=== PATIENT | female | born 1970 | race American Indian/Alaskan Native ===

== ENCOUNTER 2018-11-15 11:22 | Emergency (ER) | payer OTHER ==
[2018-11-15 11:28] VITALS: BP 147/102
[2018-11-15 11:45] LABS: Basophils # (Auto) 0.1 K/mm3 (0.0-0.1); Basophils % (Auto) 0.7 % (0.0-1.8); Eosinophils # (Auto) 0.6 K/mm3 (0.0-0.4); Eosinophils % (Auto) 4.5 % (0.0-4.3); Hematocrit 37.4 % (30.3-42.9); Hemoglobin 12.4 gm/dl (10.1-14.3); Lymphocytes # (Auto) 4.5 K/mm3 (1.2-5.4); Lymphocytes % (Auto) 34.7 % (13.4-35.0); Mean Corpuscular HGB Conc 33 % (30-34); Mean Corpuscular Volume 88 fl (79-97); Monocytes # (Auto) 0.9 K/mm3 (0.0-0.8); Monocytes % (Auto) 6.6 % (0.0-7.3); Platelet Count 265 K/mm3 (140-440); Red Blood Count 4.22 M/mm3 (3.65-5.03)
[2018-11-15 11:46] LABS: Bilirubin,Urine NEG (Negative); Blood,Urine NEG (Negative); Color,Urine Yellow (Yellow); Mucus,Urine FEW /HPF; Urobilinogen,Urine < 2.0 mg/dL (<2.0); WBC,Urine < 1.0 /HPF (0.0-6.0)
[2018-11-15 12:08] LABS: Albumin 3.4 g/dL (3.9-5); Calcium 8.9 mg/dL (8.4-10.2)
[2018-11-15] MEDS ORDERED: ZOFRAN IM ONE (12:14)
[2018-11-15] MEDS ORDERED: MORPHINE IM ONE (12:14)
--- NOTE | 2018-11-15 12:14 | Emergency Department Report ---
ED Abdominal Pain HPI - General Chief Complaint: Abdominal Pain Stated Complaint: STOMACH PAIN Time Seen by Provider: 11/15/18 11:59 Source: patient Mode of arrival: Ambulatory Limitations: No Limitations - History of Present Illness Initial Comments: Patient is 48 years old female with history of hypertension, congestive heart failure and a recent diagnosis of kidney problem but the patient does not know what set him off our disease. Patient followed by [facility] and he stated that she recently moved to this area. Patient presented to the ER complaining of diffuse abdominal pain, crampy in nature with no radiation. Patient stated that he started 3 days ago. Patient denied any nausea or vomiting. No diarrhea. Patient stated that she suffer constipation sometimes. Patient denied any fever or chills. MD Complaint: abdominal pain -: days(s) (3) Location: diffuse Radiation: none Migration to: no migration Severity: moderate Severity scale (0 -10): 10 Quality: sharp Worsens With: nothing - Related Data Allergies Allergy/AdvReac Type Severity Reaction Status Date / Time iodine Allergy Hives Verified 11/15/18 11:24 latex Allergy Hives Verified 11/15/18 11:24 Penicillins Allergy Hives Verified 11/15/18 11:24 ED Review of Systems ROS: Stated complaint: STOMACH PAIN Other details as noted in HPI Comment: All other systems reviewed and negative Constitutional: denies: chills, fever Respiratory: denies: cough, orthopnea, shortness of breath, SOB with exertion, SOB at rest, wheezing Cardiovascular: denies: chest pain Gastrointestinal: abdominal pain, constipation. denies: nausea, vomiting, diarrhea, hematemesis, melena, hematochezia Musculoskeletal: denies: back pain Neurological: denies: headache, weakness, numbness, paresthesias, confusion, abnormal gait ED Past Medical Hx - Past Medical History Hx Hypertension: Yes Hx Renal Disease: Yes Hx Psychiatric Treatment: Yes (bipolar) Additional medical history: anemia, low iron - Surgical History Additional Surgical History: kidney biopsy - Social History Smoking Status: Current Every Day Smoker Substance Use Type: Marijuana ED Physical Exam - General Limitations: No Limitations General appearance: alert, in no apparent distress - Head Head exam: Present: atraumatic, normocephalic, normal inspection - Eye Eye exam: Present: normal appearance, PERRL - ENT ENT exam: Present: normal exam, normal orophraynx, mucous membranes moist - Neck Neck exam: Present: normal inspection, full ROM. Absent: tenderness, meningismus, lymphadenopathy, thyromegaly - Respiratory Respiratory exam: Present: normal lung sounds bilaterally - Cardiovascular Cardiovascular Exam: Present: regular rate, normal rhythm, normal heart sounds - GI/Abdominal GI/Abdominal exam: Present: soft, normal bowel sounds. Absent: distended, tenderness, guarding, rebound, rigid, organomegaly, mass, bruit, pulsatile mass, hernia - Extremities Exam Extremities exam: Present: normal inspection, full ROM, normal capillary refill. Absent: tenderness, pedal edema, joint swelling, calf tenderness - Back Exam Back exam: Present: normal inspection, full ROM. Absent: tenderness, CVA tenderness (R), CVA tenderness (L), muscle spasm, paraspinal tenderness, vertebral tenderness - Neurological Exam Neurological exam: Present: alert, oriented X3, CN II-XII intact, normal gait, reflexes normal - Skin Skin exam: Present: warm, intact, normal color ED Course Vital Signs 11/15/18 11:26 Temperature 98.2 F Pulse Rate 99 H Respiratory 18 Rate Blood Pressure 147/102 O2 Sat by Pulse 99 Oximetry ED Medical Decision Making - Lab Data Result diagrams: 11/15/18 11:33 11/15/18 11:33 - Radiology Data Radiology results: report reviewed Referring Physician: SENG CHAPA Patient Name: JAGUAR NAGEL Date of : 1970 Sex: Female Report Date: 2018-11-15 Report Status: [place] [address] Cat Scan Report Signed Patient: JAGUAR NAGEL MR#: [id number] : 1970 Acct:[id number] Age/Sex: 48 / F ADM Date: 11/15/18 Loc: ED Attending Dr: Ordering Physician: SENG CHAPA Date of Service: 11/15/18 Procedure(s): CT abdomen pelvis wo con Accession Number(s): [id number] cc: SENG CHAPA PROCEDURE: CT ABDOMEN PELVIS WO CON TECHNIQUE: CT examination of the abdomen without IV contrast CT examination of the pelvis without IV contrast HISTORY: ABDOMINAL PAIN COMPARISONS: None FINDINGS: No acute lung base finding. No acute fracture. Nonspecific slight thickening of the anterior pericardium may be scar or small effusion. Smoothly marginated hypodense right and left hepatic lobe lesions are nonspecific and statistically most likely reflect cysts and/or hemangiomas. They are too small to characterize. Liver slightly enlarged with 19.1 cm sagittal dimension. Normal noncontrast appearance of the gallbladder, adrenals, pancreas, and spleen. Normal caliber abdominal aorta with slight calcified atherosclerotic plaque. Normal caliber IVC. Lack of IV and oral contrast limits the examination. No renal calculus or hydronephrosis. Normal-appearing proximal ureters. Distal ureters are obscured by adjacent pelvic structures. Intact anterior abdominal wall without hernia. No retroperitoneal adenopathy. No evidence of mesenteric mass. Normal-appearing stomach and duodenum. No small bowel distention in the abdomen and pelvis. Nonspecific slight pelvic cul-de-sac free fluid may be reactive. Normal-appearing urinary bladder, uterus, and adnexa. No definite rectal abnormality. Nonspecific scattered mural thickening is noted from the mid transverse colon to the distal sigmoid colon. No associated diverticulosis. No definite adjacent mesenteric fat stranding. No gross ascites, free air, or colonic distention. Normal-appearing cecum, terminal ileum, and appendix. IMPRESSION: Nonspecific scattered mural thickening is noted from the mid transverse colon to the distal sigmoid colon. No associated diverticulosis. Findings may reflect edema, inflammation, or nonspecific colitis. Differential includes inflammatory bowel disease Nonspecific slight thickening of the anterior pericardium may be scar or small effusion Slight hepatomegaly with small lesion statistically most likely representing cysts and/or hemangiomas Slight pelvic cul-de-sac free fluid may be reactive This document is electronically signed by Yaron Alberts MD., November 15 2018 01:28:31 PM ET Transcribed By: VINICIO Dictated By: YARON ALBERTS MD Electronically Authenticated By: YARON ALBERTS MD Signed Date/Time: 11/15/18 1330 DD/ 124 TD/TT: 11/15/18 1240 - Medical Decision Making Patient is 48 years old female with history of hypertension, congestive heart failure and a recent diagnosis of kidney problem but the patient does not know what set him off our disease. Patient followed by [facility] and he stated that she recently moved to this area. Patient presented to the ER complaining of diffuse abdominal pain, crampy in nature with no radiation. Patient stated that he started 3 days ago. Patient denied any nausea or vomiting. No diarrhea. Patient stated that she suffer constipation sometimes. Patient denied any fever or chills. The patient stated that she is feeling much better. CT abdomen and pelvis show ed possible colitis. Patient will be started on Flagyl and ciprofloxacin for 7 days and advised to follow-up with her primary care physician in the next 2-3 days and to return to the ER if symptoms are not improved. Critical care attestation.: If time is entered above; I have spent that time in minutes in the direct care of this critically ill patient, excluding procedure time. ED Disposition Clinical Impression: Abdominal pain, Colitis Disposition: TO HOME OR SELFCARE Is pt being admited?: No Condition: Stable Instructions: Abdominal Pain (ED), Infectious Colitis (ED) Referrals: [facility] [Provider Group] - 3-5 Days
--- NOTE | 2018-11-15 13:30 | Cat Scan Report ---
PROCEDURE: CT ABDOMEN PELVIS WO CON TECHNIQUE: CT examination of the abdomen without IV contrast CT examination of the pelvis without IV contrast HISTORY: ABDOMINAL PAIN COMPARISONS: None FINDINGS: No acute lung base finding. No acute fracture. Nonspecific slight thickening of the anterior pericardium may be scar or small effusion. Smoothly marginated hypodense right and left hepatic lobe lesions are nonspecific and statistically m ost likely reflect cysts and/or hemangiomas. They are too small to characterize. Liver slightly enlar ged with 19.1 cm sagittal dimension. Normal noncontrast appearance of the gallbladder, adrenals, pancreas, and spleen. Normal caliber abdo helder aorta with slight calcified atherosclerotic plaque. Normal caliber IVC. Lack of IV and oral con trast limits the examination. No renal calculus or hydronephrosis. Normal-appearing proximal ureters. Distal ureters are obscured b y adjacent pelvic structures. Intact anterior abdominal wall without hernia. No retroperitoneal adenopathy. No evidence of mesenter ic mass. Normal-appearing stomach and duodenum. No small bowel distention in the abdomen and pelvis. Nonspecific slight pelvic cul-de-sac free fluid may be reactive. Normal-appearing urinary bladder, uterus, and adnexa. No definite rectal abnormality. Nonspecific scattered mural thickening is noted from the mid transverse colon to the distal sigmoid c olon. No associated diverticulosis. No definite adjacent mesenteric fat stranding. No gross ascites, free air, or colonic distention. Normal-appearing cecum, terminal ileum, and append ix. IMPRESSION: Nonspecific scattered mural thickening is noted from the mid transverse colon to the distal sigmoid c olon. No associated diverticulosis. Findings may reflect edema, inflammation, or nonspecific colitis. Differential includes inflammatory bowel disease Nonspecific slight thickening of the anterior pericardium may be scar or small effusion Slight hepatomegaly with small lesion statistically most likely representing cysts and/or hemangiomas Slight pelvic cul-de-sac free fluid may be reactive This document is electronically signed by Yaron Cazares MD., November 15 2018 01:28:31 PM ET
== END 2018-11-15 15:33 | disposition home or self-care (01) ==
LOC: ED 11:22
DX: K52.9 Noninfective gastroenteritis and colitis, unspecified (principal); I10 Essential (primary) hypertension; F31.9 Bipolar disorder, unspecified; F17.200 Nicotine dependence, unspecified, uncomplicated; F12.10 Cannabis abuse, uncomplicated; Z88.0 Allergy status to penicillin; Z86.2 Personal history of diseases of the blood and blood-forming organs and certain disorders involving the immune mechanism; Z91.040 Latex allergy status; Z91.09 Other allergy status, other than to drugs and biological substances
CPT/HCPCS: 36415; 74176; 80053; 81001; 83690; 84703; 85025; 96372; 99284; J2270; J2405

== ENCOUNTER 2018-11-18 15:17 | Emergency (ER) | payer OTHER ==
[2018-11-18 16:14] VITALS: BP 149/95
[2018-11-18 16:49] LABS: Basophils # (Auto) 0.1 K/mm3 (0.0-0.1); Basophils % (Auto) 0.8 % (0.0-1.8); Eosinophils # (Auto) 0.3 K/mm3 (0.0-0.4); Eosinophils % (Auto) 3.7 % (0.0-4.3); Hematocrit 36.7 % (30.3-42.9); Hemoglobin 12.1 gm/dl (10.1-14.3); Lymphocytes # (Auto) 2.3 K/mm3 (1.2-5.4); Lymphocytes % (Auto) 26.2 % (13.4-35.0); Mean Corpuscular HGB Conc 33 % (30-34); Mean Corpuscular Volume 88 fl (79-97); Monocytes # (Auto) 0.6 K/mm3 (0.0-0.8); Monocytes % (Auto) 6.8 % (0.0-7.3); Platelet Count 265 K/mm3 (140-440); Red Blood Count 4.15 M/mm3 (3.65-5.03); Red Cell Distribution Width 15.7 % (13.2-15.2)
[2018-11-18 16:57] LABS: Bilirubin,Urine NEG (Negative); Blood,Urine NEG (Negative); Color,Urine Yellow (Yellow); Urobilinogen,Urine < 2.0 mg/dL (<2.0)
[2018-11-18 17:06] LABS: Albumin 3.4 g/dL (3.9-5); Calcium 8.9 mg/dL (8.4-10.2)
--- NOTE | 2018-11-18 17:20 | Emergency Department Report ---
ED Abdominal Pain HPI - General Chief Complaint: Abdominal Pain Stated Complaint: ABD PAIN Time Seen by Provider: 11/18/18 17:19 Source: patient Mode of arrival: Ambulatory Limitations: No Limitations - History of Present Illness Initial Comments: Patient is 48 years old female with history of hypertension, congestive heart failure and a recent diagnosis of kidney problem but the patient does not know what set her off on her disease. Patient followed by [facility] and he stated that she recently moved to this area. Patient presented to the ER complaining of diffuse abdominal pain, crampy in nature with no radiation. Patient was recently seen here on 11/15/2018 for the same complaint. Patient was given a prescription for tramadol, Flagyl, Zofran and Cipro which patient has not fill fussing. Review of patient's chart from 11/15/2018 it showed the patient had a elevated BU Villatoro and creatinine. Today her creatinine has increased from 1.8- 1.9 and her BUN is from 30 to now 35. It was noted that her lipase was within normal limits at 25 now was up to 215. MD Complaint: abdominal pain -: week(s) (1) Location: diffuse Severity scale (0 -10): 9 Quality: stabbing, sharp Consistency: constant Improves With: nothing - Related Data Previous Rx's Medication Instructions Recorded Last Taken Type Ciprofloxacin HCl [Ciprofloxacin 500 mg PO Q12H #14 tab 11/15/18 Unknown Rx TAB] Ondansetron [Zofran Odt] 4 mg PO Q8HR PRN #14 tab.rapdis 11/15/18 Unknown Rx metroNIDAZOLE [Flagyl] 500 mg PO Q12HR #14 tab 11/15/18 Unknown Rx traMADol [Ultram 50 MG tab] 50 mg PO Q4HR PRN #14 tablet 11/15/18 Unknown Rx Allergies Allergy/AdvReac Type Severity Reaction Status Date / Time iodine Allergy Hives Verified 11/15/18 11:24 latex Allergy Hives Verified 11/15/18 11:24 Penicillins Allergy Hives Verified 11/15/18 11:24 ED Review of Systems ROS: Stated complaint: ABD PAIN Other details as noted in HPI ED Past Medical Hx - Past Medical History Previous Medical History?: Yes Hx Hypertension: Yes Hx Renal Disease: Yes Hx Psychiatric Treatment: Yes (bipolar) Additional medical history: anemia, low iron - Surgical History Additional Surgical History: kidney biopsy - Social History Smoking Status: Current Some Day Smoker Substance Use Type: Marijuana - Medications Home Medications: Home Medications Medication Instructions Recorded Confirmed Last Taken Type Ciprofloxacin HCl [Ciprofloxacin 500 mg PO Q12H #14 tab 11/15/18 Unknown Rx TAB] Ondansetron [Zofran Odt] 4 mg PO Q8HR PRN #14 tab.rapdis 11/15/18 Unknown Rx metroNIDAZOLE [Flagyl] 500 mg PO Q12HR #14 tab 11/15/18 Unknown Rx traMADol [Ultram 50 MG tab] 50 mg PO Q4HR PRN #14 tablet 11/15/18 Unknown Rx ED Physical Exam - General Limitations: No Limitations General appearance: alert, in no apparent distress - Head Head exam: Present: atraumatic, normocephalic - Eye Eye exam: Present: EOMI - ENT ENT exam: Present: mucous membranes moist - Neck Neck exam: Present: normal inspection - Respiratory Respiratory exam: Present: normal lung sounds bilaterally. Absent: respiratory distress - Cardiovascular Cardiovascular Exam: Present: regular rate, normal rhythm. Absent: systolic murmur, diastolic murmur, rubs, gallop - GI/Abdominal GI/Abdominal exam: Present: soft, tenderness, normal bowel sounds - Extremities Exam Extremities exam: Present: normal inspection - Back Exam Back exam: Present: normal inspection - Neurological Exam Neurological exam: Present: alert, oriented X3 - Psychiatric Psychiatric exam: Present: normal affect, normal mood - Skin Skin exam: Present: warm, dry, intact, normal color. Absent: rash ED Course Vital Signs 11/18/18 11/18/18 16:10 20:15 Temperature 98.0 F Pulse Rate 98 H 89 Respiratory 19 15 Rate Blood Pressure 149/95 [Left] O2 Sat by Pulse 98 99 Oximetry ED Medical Decision Making - Lab Data Result diagrams: 11/18/18 16:37 11/18/18 16:37 - Radiology Data Radiology results: report reviewed Patient: JAGUAR NAGEL MR#: [id number] : 1970 Acct:[id number] Age/Sex: 48 / F ADM Date: 11/18/18 Loc: ED Attending Dr: Ordering Physician: IDALMIS HUDSON Date of Service: 11/18/18 Procedure(s): CT abdomen pelvis wo con Accession Number(s): [id number] cc: IDALMIS HUDSON PROCEDURE: CT ABDOMEN PELVIS WO CON TECHNIQUE: Computerized axial tomography of the abdomen and pelvis was performed without intravenous contrast. This study is performed without intravascular contrast material and its sensitivity for abdominal and pelvic pathology, including neoplasms, inflammation, abscess, free fluid, thrombosis, arterial dissection and infarction, is reduced compared with a contrast enhanced study. CT DOSE LENGTH PRODUCT: 1113.4 mGycm HISTORY: Worsening of abd pain COMPARISONS: Prior CT scan abdomen and pelvis 11/15/2018 . FINDINGS: Lower Lung razo: No focal abnormalities seen. Upper Abdomen: The unenhanced images of the gallbladder, the adrenal glands, the pancreas and spleen are unremarkable. There appear to be several small low-density nodules scattered in the right lobe of the liver and to lesser extent left lobe of the liver measuring up to 1.1 cm greatest diameter. These may represent cysts although not confirmed on this exam. These were visualized on the prior study and are unchanged. The liver is otherwise unremarkable. Kidneys, Ureters and Urinary bladder: Nonobstructing 2 mm calculus visualized upper third right kidney. No other renal calculi are seen in the right or left. There is no hydronephrosis. No ureteral calculi are seen. Urinary bladder is unremarkable. Retroperitoneum: Atherosclerotic changes are seen in the abdominal aorta. No aneurysm is visualized. Nonspecific subcentimeter lymph nodes are seen in the retroperitoneum. No patho logically enlarged lymph nodes are identified. Bowel: No focal bowel abnormalities. Thickening seen in the transverse colon is not clearly identified today. No evidence of bowel obstruction ascites or free intraperitoneal gas. The appendix is not clearly visualized. No inflammatory changes are seen in the right lower quadrant. Reproductive organs: Uterus and adnexa show no focal abnormalities. Other: No acute bone abnormalities are visualized. IMPRESSION: No acute abnormalities identified. Multiple low-density nodules scattered in the liver as described. These are small and may represent represent cysts. Other nodules not entirely excluded. Ultrasound may be helpful to evaluate liver for further. Small nonobstructing calculus upper third right kidney. Kidneys are otherwise unremarkable. Abnormal wall thickening previously seen in the colon is not clearly identified today. If there is concern for bowel abnormality barium enema may be helpful. This document is electronically signed by Vik Batres MD., November 18 2018 07:53:19 PM ET Transcribed By: DFN Dictated By: VIK BATRES MD Electronically Authenticated By: VIK BATRES MD Signed Date/Time: 11/18/181954 DD/ 15 TD/TT: 11/18/181915 Critical care attestation.: If time is entered above; I have spent that time in minutes in the direct care of this critically ill patient, excluding procedure time. ED Disposition Clinical Impression: Abdominal pain Disposition: DC-01 TO HOME OR SELFCARE Is pt being admited?: No Does the pt Need Aspirin: No Condition: Stable Instructions: Abdominal Pain (ED) Additional Instructions: Please feel her prescriptions that was given to you on the . I have given you a good Rx cart will help with the olson of the medication. Follow-up with the primary care provider a urologist and a seam stay stitcher. Referrals: ANTONINA PEÑA MD [Primary Care Provider] - 3-5 Days [facility] [Provider Group] - 3-5 Days [facility] [Provider Group] - 3-5 Days Forms: Work/School Release Form(ED)
[2018-11-18] MEDS ORDERED: NACL 0.9% 1000 ML 1,000 ML IV ONE (18:10)
--- NOTE | 2018-11-18 19:55 | Cat Scan Report ---
PROCEDURE: CT ABDOMEN PELVIS WO CON TECHNIQUE: Computerized axial tomography of the abdomen and pelvis was performed without intravenous contrast. This study is performed without intravascular contrast material and its sensitivity for ab dominal and pelvic pathology, including neoplasms, inflammation, abscess, free fluid, thrombosis, art erial dissection and infarction, is reduced compared with a contrast enhanced study. CT DOSE LENGTH PRODUCT: 1113.4 mGycm HISTORY: Worsening of abd pain COMPARISONS: Prior CT scan abdomen and pelvis 11/15/2018 . FINDINGS: Lower Lung razo: No focal abnormalities seen. Upper Abdomen: The unenhanced images of the gallbladder, the adrenal glands, the pancreas and spleen are unremarkable. There appear to be several small low-density nodules scattered in the right lobe o f the liver and to lesser extent left lobe of the liver measuring up to 1.1 cm greatest diameter. The se may represent cysts although not confirmed on this exam. These were visualized on the prior study and are unchanged. The liver is otherwise unremarkable. Kidneys, Ureters and Urinary bladder: Nonobstructing 2 mm calculus visualized upper third right kidn ey. No other renal calculi are seen in the right or left. There is no hydronephrosis. No ureteral kylah culi are seen. Urinary bladder is unremarkable. Retroperitoneum: Atherosclerotic changes are seen in the abdominal aorta. No aneurysm is visualized. Nonspecific subcentimeter lymph nodes are seen in the retroperitoneum. No pathologically enlarged ly mph nodes are identified. Bowel: No focal bowel abnormalities. Thickening seen in the transverse colon is not clearly identifi ed today. No evidence of bowel obstruction ascites or free intraperitoneal gas. The appendix is not c learly visualized. No inflammatory changes are seen in the right lower quadrant. Reproductive organs: Uterus and adnexa show no focal abnormalities. Other: No acute bone abnormalities are visualized. IMPRESSION: No acute abnormalities identified. Multiple low-density nodules scattered in the liver as described. These are small and may represent r epresent cysts. Other nodules not entirely excluded. Ultrasound may be helpful to evaluate liver for further. Small nonobstructing calculus upper third right kidney. Kidneys are otherwise unremarkable. Abnormal wall thickening previously seen in the colon is not clearly identified today. If there is co ncern for bowel abnormality barium enema may be helpful. This document is electronically signed by Vik Fountain MD., November 18 2018 07:53:19 PM ET
--- NOTE | 2018-11-18 19:56 | XRay Report ---
PROCEDURE: XR CHEST ROUTINE 2V TECHNIQUE: PA and lateral view of the chest were obtained. HISTORY: abdominal pain shortness of breath COMPARISONS: FINDINGS: The lungs are clear. No infiltrates masses effusions or pneumothorax are visualized. No acute bone ab normalities are identified. Heart size and pulmonary vasculature appear normal. IMPRESSION: No evidence of acute cardiac or pulmonary process.. This document is electronically signed by Vik Fountain MD., November 18 2018 07:54:24 PM ET
== END 2018-11-18 20:15 | disposition home or self-care (01) ==
LOC: ED 15:17
DX: R10.9 Unspecified abdominal pain (principal); F17.200 Nicotine dependence, unspecified, uncomplicated; F12.10 Cannabis abuse, uncomplicated; I11.0 Hypertensive heart disease with heart failure; I50.9 Heart failure, unspecified; Z86.2 Personal history of diseases of the blood and blood-forming organs and certain disorders involving the immune mechanism; Z88.0 Allergy status to penicillin; Z91.040 Latex allergy status; Z91.041 Radiographic dye allergy status
CPT/HCPCS: 36415; 71046; 74176; 80053; 81001; 83690; 85025; 99285

== ENCOUNTER 2020-03-23 17:47 | Emergency (ER) | payer MEDICARE ==
--- NOTE | 2020-03-23 19:29 | Event Note ---
ED Screening Note Date of service: 03/23/20 Time: 19:27 ED Screening Note: 49-year-old female patient with right-sided lower abdominal pain worsening x2 days This initial assessment/diagnostic orders/clinical plan/treatment(s) is/are subject to change based on patients health status, clinical progression and re- assessment by fellow clinical providers in the ED. Further treatment and workup at subsequent clinical providers discretion. Patient/guardian urged not to elope from the ED as their condition may be serious if not clinically assessed and managed. Initial orders include: Labs, UA
[2020-03-23 19:35] VITALS: BP 141/88
[2020-03-23 19:57] LABS: Hematocrit 34.4 % (30.3-42.9); Hemoglobin 11.3 gm/dl (10.1-14.3); Mean Corpuscular HGB Conc 33 % (30-34); Mean Corpuscular Volume 91 fl (79-97); Platelet Count 323 K/mm3 (140-440); Red Cell Distribution Width 16.7 % (13.2-15.2)
[2020-03-23 20:11] LABS: Albumin 3.8 g/dL (3.9-5); Calcium 8.8 mg/dL (8.4-10.2)
--- NOTE | 2020-03-23 20:49 | Cat Scan Report ---
CT abdomen pelvis wo con INDICATION: rlq pain. COMPARISON: None TECHNIQUE: Abdominal and pelvic CT exam performed. All CT scans at this location are performed using CT dose reduction for ALARA by means of automated exposure control. FINDINGS: CT ABDOMEN and PELVIS: Lung Bases: No significant abnormality. Liver: No significant abnormality. Biliary: No significant abnormality. Spleen: No significant abnormality. Pancreas: No significant abnormality. Adrenals: 2 cm left adrenal adenoma. Kidneys: No stones. No hydronephrosis. No suspicious renal lesion. Lymphatics: No lymphadenopathy. Vasculature: No significant abnormality. Bowel/Peritoneum: No significant abnormality. Normal appendix. Pelvis: No significant abnormality. Osseous Structures: No aggressive osseous lesion. Additional Findings: None IMPRESSION: 1. No acute abnormality of the abdomen or pelvis. 2. 2 cm left adrenal abdomen. Signer Name: Franco Winters MD Signed: 03/23/2020 8:44 PM Workstation Name: [id number]
[2020-03-23 20:55] LABS: Bilirubin,Urine NEG (Negative); Blood,Urine SM (Negative); Color,Urine Yellow (Yellow); Mucus,Urine FEW /HPF; Urobilinogen,Urine < 2.0 mg/dL (<2.0)
[2020-03-23 21:00] LABS: Total Cells Counted 100
[2020-03-23 21:01] LABS: Platelet Estimate Consistent w Auto; Target Cells Few
[2020-03-23] MEDS ORDERED: FAMOTIDINE 20 MG/2 ML INJ IV ONE (22:25)
[2020-03-23] MEDS ORDERED: ONDANSETRON 4 MG/2 ML INJ IV ONE (22:25)
[2020-03-23] MEDS ORDERED: MORPHINE 4 MG/1 ML INJ IV ONE (22:25)
--- NOTE | 2020-03-24 00:04 | Emergency Department Report ---
ED Abdominal Pain HPI - General Chief Complaint: Abdominal Pain Stated Complaint: LOWER ABD PAINS Source: patient Mode of arrival: Ambulatory Limitations: No Limitations - History of Present Illness Initial Comments: Patient is a 49-year-old -Tongan female with a history of hypertension, chronic renal disease, bipolar disorder, chronic iron deficiency anemia who presents to the ED with complaint of acute onset persistent right upper quadrant, right flank and right lower quadrant pain for the last 2 days. Patient also complains of nausea. Patient states that she has been taking urwv-hqd-ubyoike pain medications like Tylenol with no relief. Patient denies hematuria, dysuria, urinary frequency and urgency, chest pain, shortness of breath, dizziness, syncope, fever, chills, cough, vaginal bleeding or vaginal discharge. MD Complaint: abdominal pain, other (nausea) -: Sudden, days(s) (2) Location: RUQ, RLQ Radiation: RUQ, RLQ Migration to: no migration Severity scale (0 -10): 6 Quality: cramping, aching, sharp Consistency: constant Improves With: nothing Worsens With: nothing Associated Symptoms: denies other symptoms, nausea, anorexia. denies: vomiting, diarrhea, fever, chills, constipation, dysuria, hematemesis, hematochezia, melena, hematuria - Related Data Previous Rx's Medication Instructions Recorded Last Taken Type Ciprofloxacin HCl [Ciprofloxacin 500 mg PO Q12H #14 tab 11/15/18 Unknown Rx TAB] metroNIDAZOLE [Flagyl] 500 mg PO Q12HR #14 tab 11/15/18 Unknown Rx Acetaminophen [Tylenol] 500 mg PO Q6HR PRN #30 tablet 03/06/20 Unknown Rx Clindamycin [Clindamycin CAP] 300 mg PO Q8HR #60 capsule 03/06/20 Unknown Rx Dicyclomine [Bentyl] 20 mg PO Q6H PRN #30 tablet 03/23/20 Unknown Rx Ondansetron [Zofran ODT TAB] 4 mg PO Q6HR PRN #20 tab.rapdis 03/23/20 Unknown Rx traMADoL [Ultram 50 MG tab] 50 mg PO Q4HR PRN #12 tablet 03/23/20 Unknown Rx Allergies Allergy/AdvReac Type Severity Reaction Status Date / Time iodine Allergy Hives Verified 11/15/18 11:24 latex Allergy Hives Verified 11/15/18 11:24 Penicillins Allergy Hives Verified 11/15/18 11:24 ED Review of Systems ROS: Stated complaint: LOWER ABD PAINS Other details as noted in HPI Constitutional: denies: chills, fever Eyes: denies: eye pain, eye discharge, vision change ENT: denies: ear pain, throat pain Respiratory: denies: cough, shortness of breath, wheezing Cardiovascular: denies: chest pain, palpitations Endocrine: no symptoms reported Gastrointestinal: abdominal pain, nausea. denies: diarrhea Genitourinary: denies: urgency, dysuria, discharge Musculoskeletal: denies: back pain, joint swelling, arthralgia Skin: denies: rash, lesions Neurological: denies: headache, weakness, paresthesias Psychiatric: denies: anxiety, depression Hematological/Lymphatic: denies: easy bleeding, easy bruising ED Past Medical Hx - Past Medical History Previous Medical History?: Yes Hx Hypertension: Yes Hx Renal Disease: Yes Hx Psychiatric Treatment: Yes (bipolar) Additional medical history: anemia, low iron - Surgical History Past Surgical History?: Yes Additional Surgical History: kidney biopsy, Tubal Ligation - Social History Smoking Status: Current Every Day Smoker Substance Use Type: Marijuana - Medications Home Medications: Home Medications Medication Instructions Recorded Confirmed Last Taken Type Ciprofloxacin HCl [Ciprofloxacin 500 mg PO Q12H #14 tab 11/15/18 Unknown Rx TAB] metroNIDAZOLE [Flagyl] 500 mg PO Q12HR #14 tab 11/15/18 Unknown Rx Acetaminophen [Tylenol] 500 mg PO Q6HR PRN #30 tablet 03/06/20 Unknown Rx Clindamycin [Clindamycin CAP] 300 mg PO Q8HR #60 capsule 03/06/20 Unknown Rx Dicyclomine [Bentyl] 20 mg PO Q6H PRN #30 tablet 03/23/20 Unknown Rx Ondansetron [Zofran ODT TAB] 4 mg PO Q6HR PRN #20 tab.rapdis 03/23/20 Unknown Rx traMADoL [Ultram 50 MG tab] 50 mg PO Q4HR PRN #12 tablet 03/23/20 Unknown Rx ED Physical Exam - General Limitations: No Limitations General appearance: alert, in no apparent distress - Head Head exam: Present: atraumatic, normocephalic, normal inspection - Eye Eye exam: Present: normal appearance, PERRL, EOMI Pupils: Present: normal accommodation - ENT ENT exam: Present: normal exam, normal orophraynx, mucous membranes moist, TM's normal bilaterally, normal external ear exam - Neck Neck exam: Present: normal inspection, full ROM - Respiratory Respiratory exam: Present: normal lung sounds bilaterally. Absent: respiratory distress, wheezes, rales, rhonchi, accessory muscle use, decreased breath sounds, prolonged expiratory - Cardiovascular Cardiovascular Exam: Present: regular rate, normal rhythm, normal heart sounds. Absent: systolic murmur, diastolic murmur, rubs, gallop - GI/Abdominal GI/Abdominal exam: Present: soft, tenderness (Palpable diffuse right upper quadrant and right lower quadrant tenderness), normal bowel sounds. Absent: guarding, rebound, hyperactive bowel sounds, hypoactive bowel sounds, organomegaly - Extremities Exam Extremities exam: Present: normal inspection, full ROM, normal capillary refill - Back Exam Back exam: Present: normal inspection, full ROM. Absent: tenderness, CVA tenderness (R), CVA tenderness (L), muscle spasm, paraspinal tenderness, vertebral tenderness - Neurological Exam Neurological exam: Present: alert, oriented X3, CN II-XII intact, normal gait, reflexes normal - Psychiatric Psychiatric exam: Present: normal affect, normal mood - Skin Skin exam: Present: warm, dry, intact, normal color. Absent: rash ED Course Vital Signs 03/23/20 19:26 Temperature 98.4 F Pulse Rate 88 Respiratory 18 Rate Blood Pressure 141/88 O2 Sat by Pulse 99 Oximetry ED Medical Decision Making - Lab Data Result diagrams: 03/23/20 19:35 03/23/20 19:35 - Radiology Data Radiology results: report reviewed, image reviewed Findings [address] [address] Cat Scan Report Signed Patient: JAGUAR NAGEL MR#: [id number] : 1970 Acct:[id number] Age/Sex: 49 / F ADM Date: 03/23/20 Loc: ED Attending Dr: Ordering Physician: IDALMIS PRADO Date of Service: 03/23/20 Procedure(s): CT abdomen pelvis wo con Accession Number(s): [id number] cc: IDALMIS PRADO CT abdomen pelvis wo con INDICATION: rlq pain. COMPARISON: None TECHNIQUE: Abdominal and pelvic CT exam performed. All CT scans at this location are performed using CT dose reduction for ALARA by means of automated exposure control. FINDINGS: CT ABDOMEN and PELVIS: Lung Bases: No significant abnormality. Liver: No significant abnormality. Biliary: No significant abnormality. Spleen: No significant abnormality. Pancreas: No significant abnormality. Adrenals: 2 cm left adrenal adenoma. Kidneys: No stones. No hydronephrosis. No suspicious renal lesion. Lymphatics: No lymphadenopathy. Vasculature: No significant abnormality. Bowel/Peritoneum: No significant abnormality. Normal appendix. Pelvis: No significant abnormality. Osseous Structures: No aggressive osseous lesion. Additional Findings: None IMPRESSION: 1. No acute abnormality of the abdomen or pelvis. 2. 2 cm left adrenal abdomen. Signer Name: Franco Winters MD Signed: 03/23/2020 8:44 PM Workstation Name: [id number] Transcribed By: HALEIGH Dictated By: Franco Winters MD Electronically Authenticated By: Franco Winters MD Signed Date/Time: 03/23/202043 DD/ 41 TD/TT: - Medical Decision Making This is a 49-year-old -Tongan female with a history of hypertension, chronic renal disease, bipolar disorder, chronic iron deficiency anemia who presents to the ED with complaint of acute onset persistent right upper quadrant, right flank and right lower quadrant pain for the last 2 days. Patient also complains of nausea. Patient states that she has been taking slpn-omo-zplujbo pain medications like Tylenol with no relief. In the ED, patient is alert and oriented x3 and is not in any distress. Patient was treated for pain in the ED and also received antiemetics and antacids. Abdomen- pelvis CT scan w/o contrast shows no acute abnormalities. On reevaluation, patient's pain is well controlled with medications. Patient was discharged home on medications and advised to follow-up with her primary care physician in 7 to 10 days for reevaluation. Patient was advised return to the ED immediately if symptoms get worse. - Differential Diagnosis Appendicitis; GERD; Cholecystitis; UTI; Kidney stones Critical care attestation.: If time is entered above; I have spent that time in minutes in the direct care of this critically ill patient, excluding procedure time. ED Disposition Clinical Impression: Nausea and vomiting in adult patient Abdominal pain Qualifiers: Abdominal location: right lower quadrant Qualified Code(s): R10.31 - Right lower quadrant pain Disposition: DC-01 TO HOME OR SELFCARE Is pt being admited?: No Does the pt Need Aspirin: No Condition: Stable Instructions: Abdominal Pain (ED) Additional Instructions: Take medication with food, drink plenty of fluids and follow-up with your primary care physician in 7 to 10 days for reevaluation. Return to the ED immediately if symptoms get worse. Prescriptions: Dicyclomine [Bentyl] 20 mg PO Q6H PRN #30 tablet PRN Reason: Abdominal pain traMADoL [Ultram 50 MG tab] 50 mg PO Q4HR PRN #12 tablet PRN Reason: Pain Ondansetron [Zofran ODT TAB] 4 mg PO Q6HR PRN #20 tab.rapdis PRN Reason: Nausea And Vomiting Referrals: [facility] [Provider Group] - 7-10 days Time of Disposition: 23:58 Print Language: DANISH
== END 2020-03-24 00:15 | disposition home or self-care (01) ==
LOC: ED 17:47
DX: R10.11 Right upper quadrant pain (principal); R10.31 Right lower quadrant pain; R11.2 Nausea with vomiting, unspecified; I10 Essential (primary) hypertension; E11.9 Type 2 diabetes mellitus without complications; F31.9 Bipolar disorder, unspecified; F17.200 Nicotine dependence, unspecified, uncomplicated; F12.10 Cannabis abuse, uncomplicated; Z98.51 Tubal ligation status; Z79.899 Other long term (current) drug therapy; Z88.0 Allergy status to penicillin; Z91.040 Latex allergy status; Z88.8 Allergy status to other drugs, medicaments and biological substances
CPT/HCPCS: 36415; 74176; 80053; 81001; 83690; 85007; 85025; 96374; 96375; 99284; J2270; J2405

== ENCOUNTER 2021-07-13 14:59 | Emergency (ER) | payer MEDICARE ==
[2021-07-13] MEDS ORDERED: ACETAMINOPHEN 500 MG TAB PO ONE (19:17)
--- NOTE | 2021-07-13 19:26 | Emergency Department Report ---
Minor Respiratory - HPI Minor Respiratory: Yes Rhinorrhea, Yes Cough, Yes Fever, No Sore Throat Other History: 51-year-old -[place] female presents to the emergency room complaining of headache nausea nasal congestion diarrhea vomiting and slight fever. She states she had a cough which has improved when she took her mask off. Patient is taking nothing for her symptoms. Patient reports she has end-stage renal disease stage III. She reports she has hypertension. She states she has no contact with anyone so she does not feel that it is Covid. Patient is not vaccinated and has not tested for Covid. She states that she lives alone and does not work. Also complains of abdominal pain and tenderness. <OWEN HAQ - Last Filed: 07/13/21 19:17> <CHAVEZ GARCIA - Last Filed: 07/14/21 00:50> - HPI Chief Complaint: Fever Stated Complaint: COUGH IM SICK ED Review of Systems ROS: Stated complaint: COUGH IM SICK Other details as noted in HPI <OWEN HAQ - Last Filed: 07/13/21 19:17> ROS: Stated complaint: COUGH IM SICK Other details as noted in HPI <CHAVEZ GARCIA - Last Filed: 07/14/21 00:50> ED Past Medical Hx - Past Medical History Hx Hypertension: Yes Hx Renal Disease: Yes Hx Psychiatric Treatment: Yes (bipolar) Additional medical history: anemia, low iron - Surgical History Additional Surgical History: kidney biopsy, Tubal Ligation - Social History Smoking Status: Current Every Day Smoker Substance Use Type: Marijuana <OWEN HAQ - Last Filed: 07/13/21 19:17> <CHAVEZ GARCIA - Last Filed: 07/14/21 00:50> - Medications Home Medications: Home Medications Medication Instructions Recorded Confirmed Last Taken Type Ciprofloxacin HCl [Ciprofloxacin 500 mg PO Q12H #14 tab 11/15/18 Unknown Rx TAB] metroNIDAZOLE [Flagyl] 500 mg PO Q12HR #14 tab 11/15/18 Unknown Rx Clindamycin [Clindamycin CAP] 300 mg PO Q8HR #60 capsule 03/06/20 Unknown Rx Dicyclomine [Bentyl] 20 mg PO Q6H PRN #30 tablet 03/23/20 Unknown Rx Ondansetron [Zofran ODT TAB] 4 mg PO Q6HR PRN #20 tab.rapdis 03/23/20 Unknown Rx traMADoL [Ultram 50 MG tab] 50 mg PO Q4HR PRN #12 tablet 03/23/20 Unknown Rx Acetaminophen [Acetaminophen TAB] 500 mg PO Q6HR PRN #30 tablet 07/14/21 Unknown Rx Brompheniramine/Pseudoephed/Dm 5 ml PO Q6H #118 ml 07/14/21 Unknown Rx [Bromfed Dm Cough Syrup] Cetirizine HCl [Zyrtec 10mg tab] 10 mg PO DAILY #30 tablet 07/14/21 Unknown Rx Ondansetron [Zofran Odt] 4 mg PO Q6HR PRN #20 tab.rapdis 07/14/21 Unknown Rx Minor Respiratory Exam - Exam General: Vital signs noted. No distress. Alert and acting appropriately. Neurologic: Alert and oriented, no deficits. Musculoskeletal: Unremarkable. <OWEN HAQ - Last Filed: 07/13/21 19:17> - Exam General: Vital signs noted. No distress. Alert and acting appropriately. Neurologic: Alert and oriented, no deficits. Musculoskeletal: Unremarkable. <CHAVEZ GARCIA - Last Filed: 07/14/21 00:50> ED Course Vital Signs 07/13/21 15:10 Temperature 100.1 F H Pulse Rate 98 H Respiratory 16 Rate Blood Pressure 141/80 [Left] O2 Sat by Pulse 99 Oximetry <OWEN HAQ - Last Filed: 07/13/21 19:17> Vital Signs 07/13/21 07/13/21 15:10 19:27 Temperature 100.1 F H Pulse Rate 98 H Respiratory 16 16 Rate Blood Pressure 141/80 [Left] O2 Sat by Pulse 99 Oximetry <CHAVEZ GARCIA - Last Filed: 07/14/21 00:50> ED Medical Decision Making - Lab Data Result diagrams: 07/13/21 19:26 07/13/21 19:26 - Radiology Data Radiology results: report reviewed, image reviewed [facility] [address] [place] [address] XRay Report Signed Patient: JAGUAR NAGEL MR#: [id number] : 1970 Acct:[id number] Age/Sex: 51 / F ADM Date: 07/13/21 Loc: ED Attending Dr: Ordering Physician: IDALMIS WELDON Date of Service: 07/13/21 Procedure(s): XR chest 1V ap Accession Number(s): [id number] cc: IDALMIS WELDON Fluoro Time In Minutes: CHEST 1 VIEW 07/13/2021 9:57 PM INDICATION / CLINICAL INFORMATION: Cough. COMPARISON: 11/18/18 FINDINGS: SUPPORT DEVICES: None. HEART / MEDIASTINUM: No significant abnormality. LUNGS / PLEURA: No significant pulmonary or pleural abnormality. No pneumothorax. ADDITIONAL FINDINGS: No significant additional findings. IMPRESSION: 1. No acute findings. Signer Name: Jhonny Lynne MD Signed: 07/13/2021 10:06 PM Workstation Name: [id number] Transcribed By: DT Dictated By: Chavez Lynne MD Electronically Authenticated By: Chavez Lynne MD Signed Date/Time: 07/13/212205 DD/ 05 TD/TT: - Medical Decision Making I assumed care of the patient from Elizabeth EagleCelia LASHAY at shift change at 2100 hrs. Patient had presented to the ED with upper respiratory infection symptoms. Rapid influenza test were negative. Chest x-ray showed no acute cardiopulmonary abnormalities or pneumonitis. All other lab test results were reviewed and showed baseline chronic kidney disease. Patient was therefore discharged home on medications and advised to follow-up with her primary care physician in 7 to 10 days for reevaluation. Patient advised return to the ED immediately if symptoms get worse. - Differential Diagnosis URI; bronchitis; pneumonia; UTI; influenza; COVID-19 <CHAVEZ GARCIA - Last Filed: 07/14/21 00:50> Critical care attestation.: If time is entered above; I have spent that time in minutes in the direct care of this critically ill patient, excluding procedure time. <OWEN HAQ - Last Filed: 07/13/21 19:17> Critical care attestation.: If time is entered above; I have spent that time in minutes in the direct care of this critically ill patient, excluding procedure time. <CHAVEZ GARCIA - Last Filed: 07/14/21 00:50> ED Disposition <OWEN HAQ - Last Filed: 07/13/21 19:17> Is pt being admited?: No Does the pt Need Aspirin: No Time of Disposition: 00:47 <CHAVEZ GARCIA - Last Filed: 07/14/21 00:50> Clinical Impression: Acute bronchitis, Acute upper respiratory infection, Viral syndrome, Nausea and vomiting in adult patient Disposition: HOME / SELF CARE / HOMELESS Condition: Stable Instructions: Acute Bronchitis (ED), Upper Respiratory Infection, Adult, Fonn-lv-Ejeu, Nausea and Vomiting, Adult, Qpmw-vv-Hreu, Viral Illness, Adult, Cough, Adult, Zlsp-ya-Lzih Additional Instructions: All lab test results were reviewed and are all nonactionable including rapid influenza test results. Your symptoms are likely viral in etiology. Chest x- ray showed no acute cardiopulmonary abnormalities or pneumonitis. Therefore take medications as needed for fever, for nausea and for congestion as well as cough and follow-up with your primary care physician in 7 to 10 days for reevaluation. Return to the ED immediately if symptoms get worse. Prescriptions: Acetaminophen [Acetaminophen TAB] 500 mg PO Q6HR PRN #30 tablet PRN Reason: Pain , Severe (7-10) Brompheniramine/Pseudoephed/Dm [Bromfed Dm Cough Syrup] 5 ml PO Q6H #118 ml Ondansetron [Zofran Odt] 4 mg PO Q6HR PRN #20 tab.rapdis PRN Reason: Nausea Cetirizine HCl [Zyrtec 10mg tab] 10 mg PO DAILY #30 tablet Print Language: TURKMEN
[2021-07-13 19:59] LABS: Albumin 3.9 g/dL (3.9-5); Calcium 9.3 mg/dL (8.4-10.2)
[2021-07-13 20:06] LABS: Basophils # (Auto) 0.1 K/mm3 (0.0-0.1); Basophils % (Auto) 0.8 % (0.0-1.8); Eosinophils # (Auto) 0.1 K/mm3 (0.0-0.4); Eosinophils % (Auto) 1.1 % (0.0-4.3); Hematocrit 32.9 % (30.3-42.9); Hemoglobin 10.7 gm/dl (10.1-14.3); Lymphocytes # (Auto) 1.2 K/mm3 (1.2-5.4); Lymphocytes % (Auto) 17.5 % (13.4-35.0); Mean Corpuscular HGB Conc 33 % (30-34); Mean Corpuscular Volume 102 fl (79-97); Monocytes % (Auto) 14.5 % (0.0-7.3); Platelet Count 248 K/mm3 (140-440); Red Blood Count 3.23 M/mm3 (3.65-5.03); Red Cell Distribution Width 15.4 % (13.2-15.2)
--- NOTE | 2021-07-13 22:11 | XRay Report ---
CHEST 1 VIEW 07/13/2021 9:57 PM INDICATION / CLINICAL INFORMATION: Cough. COMPARISON: 11/18/18 FINDINGS: SUPPORT DEVICES: None. HEART / MEDIASTINUM: No significant abnormality. LUNGS / PLEURA: No significant pulmonary or pleural abnormality. No pneumothorax. ADDITIONAL FINDINGS: No significant additional findings. IMPRESSION: 1. No acute findings. Signer Name: Jhonny Lynne MD Signed: 07/13/2021 10:06 PM Workstation Name: [id number]
[2021-07-13 23:48] LABS: Bacteria,Urine 1+ /HPF (Negative); Bilirubin,Urine NEG (Negative); Blood,Urine SM (Negative); Color,Urine Yellow (Yellow); Hyaline Casts,Urine 2 /LPF; Mucus,Urine FEW /HPF; Protein,Urine >500 mg/dL (Negative); Urobilinogen,Urine < 2.0 mg/dL (<2.0)
[2021-07-14 01:57] VITALS: BP 157/99
== END 2021-07-14 02:43 | disposition home or self-care (01) ==
LOC: ED 14:59
DX: J20.9 Acute bronchitis, unspecified (principal); J06.9 Acute upper respiratory infection, unspecified; B34.9 Viral infection, unspecified; R11.2 Nausea with vomiting, unspecified; F17.200 Nicotine dependence, unspecified, uncomplicated; F12.90 Cannabis use, unspecified, uncomplicated; F31.9 Bipolar disorder, unspecified; I10 Essential (primary) hypertension; Z91.041 Radiographic dye allergy status; Z91.040 Latex allergy status; Z88.0 Allergy status to penicillin
CPT/HCPCS: 36415; 71045; 80053; 81001; 83690; 85025; 87400; 99284

== ENCOUNTER 2022-04-04 09:42 | Emergency (ER) | payer MEDICARE ==
[2022-04-04 10:39] LABS: Basophils # (Auto) 0.1 K/mm3 (0.0-0.1); Basophils % (Auto) 0.8 % (0.0-1.8); Eosinophils # (Auto) 0.4 K/mm3 (0.0-0.4); Eosinophils % (Auto) 3.4 % (0.0-4.3); Hematocrit 37.1 % (30.3-42.9); Hemoglobin 12.4 gm/dl (10.1-14.3); Lymphocytes # (Auto) 3.1 K/mm3 (1.2-5.4); Lymphocytes % (Auto) 27.6 % (13.4-35.0); Mean Corpuscular HGB Conc 33 % (30-34); Mean Corpuscular Volume 89 fl (79-97); Monocytes # (Auto) 0.9 K/mm3 (0.0-0.8); Monocytes % (Auto) 7.8 % (0.0-7.3); Platelet Count 313 K/mm3 (140-440); Red Blood Count 4.16 M/mm3 (3.65-5.03); Red Cell Distribution Width 16.6 % (13.2-15.2)
[2022-04-04 10:58] LABS: Albumin 4.6 g/dL (3.9-5); Calcium 9.3 mg/dL (8.4-10.2)
[2022-04-05 02:01] LABS: Bacteria,Urine 1+ /HPF (Negative); Hyaline Casts,Urine 1 /LPF; Mucus,Urine FEW /HPF
[2022-04-05 02:05] LABS: Color,Urine Yellow (Yellow)
--- NOTE | 2022-04-05 02:56 | Ultrasound Report ---
ULTRASOUND ABDOMEN, LIMITED INDICATION / CLINICAL INFORMATION: ruq pain. COMPARISON: None available. TECHNIQUE: Using transcutaneous protocol multiple grayscale and color Doppler images were captured an d stored of the pancreas, liver, aorta, inferior vena cava, gallbladder, common bile duct, and right kidney. FINDINGS: PANCREAS: Pancreas is not well-visualized. AORTA: Longitudinal images of the aorta demonstrate no significant abnormality. IVC: Longitudinal images of the inferior vena cava demonstrate no significant abnormality. LIVER: The liver demonstrates a heterogeneous hyperechoic appearance. Right hepatic lobe measures 17. 4 cm. There are 2 cysts present measuring 1.2 and 0.9 cm respectively. Normal hepatopedal blood flow in the main portal vein. GALLBLADDER: No significant abnormality. BILE DUCTS: No significant abnormality. Common bile duct measures mm. RIGHT KIDNEY: Not identified. FREE FLUID: None. ADDITIONAL FINDINGS: None. IMPRESSION: 1. Heterogeneous hyperechoic liver may reflect evidence of hepatic steatosis. Signer Name: Yakov Vasquez II, MD Signed: 04/05/2022 2:52 AM Workstation Name: [id number]
[2022-04-05] MEDS ORDERED: HYOSCYAMINE SUBL 0.125 MG TAB SL ONE (04:17)
--- NOTE | 2022-04-05 05:10 | Emergency Department Report ---
ED Abdominal Pain HPI - General Chief Complaint: Abdominal Pain Stated Complaint: STOMACH PAIN Time Seen by Provider: 04/05/22 01:37 Source: patient Mode of arrival: Ambulatory Limitations: No Limitations - History of Present Illness MD Complaint: abdominal pain -: week(s) (3) Location: diffuse Radiation: none Migration to: no migration Quality: dull Consistency: constant Improves With: nothing Worsens With: nothing Associated Symptoms: denies other symptoms. denies: nausea, vomiting, diarrhea, constipation, dysuria, hematochezia, anorexia - Related Data Previous Rx's Medication Instructions Recorded Last Taken Type Ciprofloxacin HCl [Ciprofloxacin 500 mg PO Q12H #14 tab 11/15/18 Unknown Rx TAB] metroNIDAZOLE [Flagyl] 500 mg PO Q12HR #14 tab 11/15/18 Unknown Rx Clindamycin [Clindamycin CAP] 300 mg PO Q8HR #60 capsule 03/06/20 Unknown Rx Dicyclomine [Bentyl] 20 mg PO Q6H PRN #30 tablet 03/23/20 Unknown Rx Ondansetron [Zofran ODT TAB] 4 mg PO Q6HR PRN #20 tab.rapdis 03/23/20 Unknown Rx traMADoL [Ultram 50 MG tab] 50 mg PO Q4HR PRN #12 tablet 03/23/20 Unknown Rx Acetaminophen [Acetaminophen TAB] 500 mg PO Q6HR PRN #30 tablet 07/14/21 Unknown Rx Brompheniramine/Pseudoephed/Dm 5 ml PO Q6H #118 ml 07/14/21 Unknown Rx [Bromfed Dm Cough Syrup] Cetirizine HCl [Zyrtec 10mg tab] 10 mg PO DAILY #30 tablet 07/14/21 Unknown Rx Ondansetron [Zofran Odt] 4 mg PO Q6HR PRN #20 tab.rapdis 07/14/21 Unknown Rx Hyoscyamine Subl [Levsin Sl 0.125 0.125 mg SL Q6HR PRN #30 tab 04/05/22 Unknown Rx TAB] Ketorolac [Toradol] 10 mg PO Q6H PRN #14 04/05/22 Unknown Rx Allergies Allergy/AdvReac Type Severity Reaction Status Date / Time iodine Allergy Hives Verified 04/04/22 09:56 latex Allergy Hives Verified 04/04/22 09:56 Penicillins Allergy Hives Verified 04/04/22 09:56 ED Review of Systems ROS: Stated complaint: STOMACH PAIN Other details as noted in HPI Comment: All other systems reviewed and negative ED Past Medical Hx - Past Medical History Hx Hypertension: Yes Hx Renal Disease: Yes Hx Psychiatric Treatment: Yes (bipolar) Additional medical history: anemia, low iron - Surgical History Additional Surgical History: kidney biopsy, Tubal Ligation - Social History Smoking Status: Current Every Day Smoker Substance Use Type: Marijuana - Medications Home Medications: Home Medications Medication Instructions Recorded Confirmed Last Taken Type Ciprofloxacin HCl [Ciprofloxacin 500 mg PO Q12H #14 tab 11/15/18 Unknown Rx TAB] metroNIDAZOLE [Flagyl] 500 mg PO Q12HR #14 tab 11/15/18 Unknown Rx Clindamycin [Clindamycin CAP] 300 mg PO Q8HR #60 capsule 03/06/20 Unknown Rx Dicyclomine [Bentyl] 20 mg PO Q6H PRN #30 tablet 03/23/20 Unknown Rx Ondansetron [Zofran ODT TAB] 4 mg PO Q6HR PRN #20 tab.rapdis 03/23/20 Unknown Rx traMADoL [Ultram 50 MG tab] 50 mg PO Q4HR PRN #12 tablet 03/23/20 Unknown Rx Acetaminophen [Acetaminophen TAB] 500 mg PO Q6HR PRN #30 tablet 07/14/21 Unknown Rx Brompheniramine/Pseudoephed/Dm 5 ml PO Q6H #118 ml 07/14/21 Unknown Rx [Bromfed Dm Cough Syrup] Cetirizine HCl [Zyrtec 10mg tab] 10 mg PO DAILY #30 tablet 07/14/21 Unknown Rx Ondansetron [Zofran Odt] 4 mg PO Q6HR PRN #20 tab.rapdis 07/14/21 Unknown Rx Hyoscyamine Subl [Levsin Sl 0.125 0.125 mg SL Q6HR PRN #30 tab 04/05/22 Unknown Rx TAB] Ketorolac [Toradol] 10 mg PO Q6H PRN #14 04/05/22 Unknown Rx ED Physical Exam - General Limitations: No Limitations General appearance: alert, in no apparent distress - Head Head exam: Present: atraumatic, normocephalic - Eye Eye exam: Present: normal appearance, PERRL, EOMI Pupils: Present: normal accommodation - ENT ENT exam: Present: mucous membranes moist - Neck Neck exam: Present: normal inspection - Respiratory Respiratory exam: Present: normal lung sounds bilaterally. Absent: respiratory distress - Cardiovascular Cardiovascular Exam: Present: regular rate, normal rhythm. Absent: systolic murmur, diastolic murmur, rubs, gallop - GI/Abdominal GI/Abdominal exam: Present: soft, tenderness (RUQ +Ricks), normal bowel sounds - Extremities Exam Extremities exam: Present: normal inspection - Back Exam Back exam: Present: normal inspection - Neurological Exam Neurological exam: Present: alert, oriented X3 - Psychiatric Psychiatric exam: Present: normal affect, normal mood - Skin Skin exam: Present: warm, dry, intact, normal color. Absent: rash ED Course Vital Signs 04/04/22 04/05/22 09:52 05:33 Temperature 98.1 F Pulse Rate 116 H 92 H Respiratory 18 12 Rate Blood Pressure 141/92 143/90 [Left] O2 Sat by Pulse 100 97 Oximetry ED Medical Decision Making - Lab Data Result diagrams: 04/04/22 10:16 04/04/22 10:16 Critical care attestation.: If time is entered above; I have spent that time in minutes in the direct care of this critically ill patient, excluding procedure time. ED Disposition Clinical Impression: Abdominal pain Disposition: 01 HOME / SELF CARE / HOMELESS Is pt being admited?: No Does the pt Need Aspirin: No Condition: Stable Instructions: Gallbladder Nuclear Scan, Abdominal Pain, Adult, Kuje-yx-Iblr, Abdominal Pain (ED) Prescriptions: Hyoscyamine Subl [Levsin Sl 0.125 TAB] 0.125 mg SL Q6HR PRN #30 tab PRN Reason: abdominal pain Ketorolac [Toradol] 10 mg PO Q6H PRN #14 PRN Reason: Pain Referrals: PRIMARY CARE, [Primary Care Provider] - 3-5 Days [facility] [Provider Group] - 3-5 Days
[2022-04-05 05:34] VITALS: BP 143/90
== END 2022-04-05 05:34 | disposition home or self-care (01) ==
LOC: ED 09:42
DX: R10.9 Unspecified abdominal pain (principal); F17.200 Nicotine dependence, unspecified, uncomplicated; Z88.0 Allergy status to penicillin; Z91.041 Radiographic dye allergy status; I10 Essential (primary) hypertension; F12.90 Cannabis use, unspecified, uncomplicated
CPT/HCPCS: 36415; 76705; 80053; 81001; 85025; 99284